=== PATIENT | male | born 1980 | race Two or more races ===

== ENCOUNTER 2023-03-12 09:02 | Emergency (ER) | payer OTHER ==
[2023-03-12 09:31] VITALS: RESP 20; TEMP 98.2; BMI 32.5
[2023-03-12] MEDS ORDERED: ACETAMINOPHEN 1000 MG/100 ML BAG IVPB ONE (11:47)
[2023-03-12] MEDS ORDERED: ACETAMINOPHEN INJECTION 100 ML IVPB ONE ×2 (12:43→12:44)
[2023-03-12 13:02] LABS: BASO % 0.5 % (0-2.0); EOS % 1.7 % (0-4.5); HEMATOCRIT 41.8 % (35.4-49); HEMOGLOBIN 13.8 GM/dL (11.7-16.9); LYMPH % 20.3 % (8-40); MCH 23.9 pg (25.7-33.7); MCHC 32.9 g/dl (32.0-35.9); MEAN CELL VOLUME 72.7 fl (80-96); MEAN PLT VOLUME 8.4 fl (7.5-11.1); MONO % 6.8 % (3.8-10.2); NEUT % 70.7 % (42.8-82.8); PLATELET COUNT 270 10^3/uL (134-434); RBC 5.75 M/mm3 (4.00-5.60); RDW 13.9 % (11.9-15.9); WHITE BLOOD COUNT 10.3 K/mm3 (4.0-10.0)
[2023-03-12 13:04] LABS: PH,URINE 5.5 (5.0-8.0); URINE APPEARANCE CLEAR; URINE BILIRUBIN NEGATIVE (NEGATIVE); URINE COLOR YELLOW; URINE GLUCOSE (UA) NEGATIVE (NEGATIVE); URINE KETONE NEGATIVE (NEGATIVE); URINE LEUK ESTERASE NEGATIVE (NEGATIVE); URINE NITRITE NEGATIVE (NEGATIVE); URINE PROTEIN NEGATIVE (NEGATIVE); URINE UROBILINOGEN 0.2 mg/dL (0.2-1.0)
[2023-03-12 13:19] LABS: POTASSIUM 4.5 mmol/L (3.5-5.1)
[2023-03-12 13:21] LABS: CALCIUM 9.4 mg/dL (8.5-10.1)
[2023-03-12 13:22] LABS: BLOOD UREA NITROGEN 12.9 mg/dL (7-18)
[2023-03-12 13:25] LABS: CREATININE 0.8 mg/dL (0.55-1.3)
[2023-03-12 13:26] LABS: BILIRUBIN,TOTAL 0.5 mg/dL (0.2-1)
[2023-03-12] MEDS ORDERED: KETOROLAC TROMETHAMINE 15 MG/ML VIAL IVPUSH ONE (15:43)
[2023-03-12] MEDS ORDERED: KETOROLAC TROMETHAMINE 15 MG/ML VIAL ONE (15:49)
[2023-03-12 17:27] VITALS: BP 122/79; PULSE 72
== END 2023-03-12 17:21 | disposition home or self-care (01) ==
LOC: JER 09:02
PROC: 3E033NZ Introduction of Analgesics, Hypnotics, Sedatives into Peripheral Vein, Percutaneous Approach (ICD-10-PCS; principal; 2023-03-12)
DX: K65.9 Peritonitis, unspecified (principal); R10.32 Left lower quadrant pain
CPT/HCPCS: 36415; 74177-TC; 80053; 81003; 83690; 85025; 87086; 96374; 99285-25; Q9967